=== PATIENT | male | born 1995 | race African-American/Black ===

== ENCOUNTER 2017-03-12 14:15 | Emergency (ER) | payer MEDICAID ==
[~2017-03-12] VITALS: Ht 175.3 cm; Wt 88.5 kg
[~2017-03-12 14:15] MED LIST: AMOX875T PO; SORE15LO PO
[2017-03-12 14:18] VITALS: BP 130/61; PULSE 84; RESP 20; TEMP 99.3; O2SAT 98
--- NOTE | 2017-03-12 14:33 | PD ---
HPI Chief Complaint: Complaint Time Seen by Provider: 14:33 Travel History International Travel<30 days: No Contact w/Intl Traveler<30days: No Traveled to known affect area: No History of Present Illness HPI 21-year-old male presents to the emergency Department with complaint of yellowish drainage from his penis for over a week. Reports dysuria. Denies testicular swelling, testicular pain, penile pain. Denies abdominal pain, nausea, vomiting, fever. Reports unprotected sexual intercourse with 2 partners. Has not taken any medications or tried any treatments to alleviate his symptoms. Symptoms are mild in severity. No known aggravating or relieving factors. Unknown exposure to STD. No other medical complaints. No known allergies. No other modifying factors or associated signs and symptoms. PFSH Past Medical History ADHD: No Asthma: Yes Cancer: No Cardiovascular Problems: No Developmental Delay: No Diabetes: No Diminished Hearing: No Psychiatric: No Immunizations Current: Yes Migraines: No Seizures: No Thyroid Disease: No Ulcer: No Past Surgical History Other Surgery: Yes (GANGLION CYST REMOVAL FROM RIGHT WRIST) Social History Alcohol Use: No Tobacco Use: No Substance Use: No Allergies-Medications (Allergen,Severity, Reaction): Coded Allergies: No Known Allergies (Verified , 06/08/16) Reported Meds & Prescriptions Reported Meds & Active Scripts Active Amoxicillin 875 Mg Tab 875 Mg PO BID 10 Days Sore Throat Lozenge (Benzocaine/Menthol) 15-3.6 Mg Lozg 1 Lozenge PO Q6HR PRN Review of Systems Except as stated in HPI: all other systems reviewed are Neg Physical Exam Narrative GENERAL: Well-nourished, well-developed black male patient, in no acute distress SKIN: Warm and dry. HEAD: Atraumatic. Normocephalic. EYES: Pupils equal and round. ENT: Mucosa pink and moist. NECK: Trachea midline. No lymphadenopathy. CARDIOVASCULAR: Regular rate. RESPIRATORY: No accessory muscle use. GASTROINTESTINAL: Abdomen soft and nondisteneded; with tenderness at the umbilicus on palpation. Hepatic and splenic margins not palpable. Bowel sounds are active 4 quadrants. GENITOURINARY: Exam done in the presence of a nurse. Uncircumcised. Testes descended bilaterally without evidence of rotation. No lesions or erythema. Milky white/yellowish urethral discharge. MUSCULOSKELETAL: No obvious deformities. No clubbing. No cyanosis. No edema. NEUROLOGICAL: Awake and alert. Oriented 3. No obvious cranial nerve deficits. Motor grossly within normal limits. Normal speech. Moves all extremities. 5/5 strength to all extremities. PSYCHIATRIC: Appropriate mood and affect; insight and judgment normal. Data Data Last Documented VS Vital Signs Date Time Temp Pulse Resp B/P (MAP) Pulse Ox O2 Delivery O2 Flow Rate FiO2 03/12/17 14:18 99.3 84 20 130/61 (84) 98 Room Air Orders Orders Gc And Chlamydia Pcr (03/12/17 14:33) Azithromycin Powd Pack (Zithromax Powd P (03/12/17 14:45) Ceftriaxone Inj (Rocephin Inj) (03/12/17 14:45) Lidocaine 1% Inj (50 Ml) (Xylocaine 1% I (03/12/17 14:45) Metronidazole (Flagyl) (03/12/17 14:45) MDM Medical Decision Making Medical Screen Exam Complete: Yes Emergency Medical Condition: Yes Medical Record Reviewed: Yes Differential Diagnosis Urethritis, chlamydia, gonorrhea, trichomoniasis Narrative Course 21-year-old male physical exam consistent with urethritis. Patient empirically treated with azithromycin, Rocephin, Flagyl. Instructed patient to follow up at [facility] for further STD testing. Patient provided [facility] information sheet. Instructed patient to follow up with primary care provider. Patient verbalizes understanding and agreement with treatment plan. Patient is medically cleared and stable for discharge. Discussed reasons to return to the emergency department. Patient agrees with treatment plan. The patients vital signs are stable and the patient is stable for outpatient follow-up and treatment. Patient discharged home, stable and in no acute distress. Diagnosis Primary Impression: Urethritis Referrals: Primary Care Physician Patient Instructions: Chlamydia (ED), General Instructions, Gonorrhea (ED), Sexually Transmitted Diseases (ED), Trichomoniasis (ED) Additional Instructions: Avoid sexual activity until you follow up with your primary care provider Avoid sexual activity for 14 days Avoid sexual activity with exposed partners until they have been treated and again 14 days after treatment Inform all sexual partners within the past 3-6 months that they need to be evaluated and treated Use condoms every time you have sex Follow-up with primary care provider Return to the emergency department immediately with worsening of symptoms Med/Other Pt SpecificInfo: No Meds Exist/No RX given Disposition: DISCHARGE HOME Condition: Stable Brenda Glass Mar 12, 2017 14:33
[2017-03-12] MEDS ORDERED: LIDOCAINE HCL 1% 50 ML VIAL IM ONE (14:45)
[2017-03-12] MEDS ORDERED: cefTRIAXone 250 MG VIAL IM ONE (14:45)
[2017-03-12] MEDS ORDERED: metroNIDAZOLE 500 MG TAB PO ONE (14:45)
[2017-03-12] MEDS ORDERED: AZITHROMYCIN PWD FOR SUSP 1 GM PACKET PO ONE (14:45)
[2017-03-12 19:47] LABS: CHLAMYDIA PCR NOT DETECTED (NOT DETECT); NEISSERIA PCR NOT DETECTED (NOT DETECT)
== END 2017-03-12 15:04 | disposition home or self-care (01) ==
LOC: NEPK 14:15
DX: N34.2 Other urethritis (principal); Z87.09 Personal history of other diseases of the respiratory system
CPT/HCPCS: 87491; 87591; 96372; 99284; J0696

== ENCOUNTER → 2017-03-15 | Day surgery (SDC) | payer MEDICAID ==
[~2017-03-15] MED LIST changes: +BUPIVACAINE/EPINEPHRINE 0.25% 50 ML VIAL ONE; +KETOROLAC TROMETHAMINE 30 MG/ML (IVP) VIAL IV PUSH ONE; +LACTATED RINGER'S 1000 ML INJ 1,000 ML ONE; +MEPERIDINE HCL 25 MG/ML VIAL ONE; +MIDAZOLAM HCL 2 MG/2 ML VIAL ONE; +ONDANSETRON HCL 4 MG/2 ML VIAL IV PUSH ONE; +PROPOFOL 200 MG/20 ML AMP IV ONE; +ceFAZolin INJ 1,000 MG VIAL ONE
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
== END | disposition home or self-care (01) ==
LOC: ESDC 06:43
PROVIDERS: ATTEND Orthopaedic Surgery Sports Medicine
DX: S83.251A Bucket-handle tear of lateral meniscus, current injury, right knee, initial encounter (principal); M65.9 Synovitis and tenosynovitis, unspecified
CPT/HCPCS: 01400; 29881; J0690; J1885; J2175; J2250; J2405; J3010; J7120

== ENCOUNTER 2017-05-07 12:03 | Emergency (ER) | payer MEDICAID ==
[~2017-05-07 12:03] MED LIST changes: -BUPIVACAINE/EPINEPHRINE 0.25% 50 ML VIAL ONE; -KETOROLAC TROMETHAMINE 30 MG/ML (IVP) VIAL IV PUSH ONE; -LACTATED RINGER'S 1000 ML INJ 1,000 ML ONE; -MEPERIDINE HCL 25 MG/ML VIAL ONE; -MIDAZOLAM HCL 2 MG/2 ML VIAL ONE; -ONDANSETRON HCL 4 MG/2 ML VIAL IV PUSH ONE; -PROPOFOL 200 MG/20 ML AMP IV ONE; -ceFAZolin INJ 1,000 MG VIAL ONE
[2017-05-07 12:05] VITALS: BP 147/63; PULSE 91; RESP 16; TEMP 98.8; O2SAT 98
--- NOTE | 2017-05-07 12:34 | PD ---
HPI Chief Complaint: ENT Complaint Time Seen by Provider: 12:28 Travel History International Travel<30 days: No Contact w/Intl Traveler<30days: No Traveled to known affect area: No History of Present Illness HPI 22-year-old male presents to the emergency department with a sore throat for approximately 3 days. States that he has chronic history of sore throats and get strep pharyngitis recently. They say he has been around a lot of sick people with "the common cold" and does not know if anybody else has had strep pharyngitis. Patient denies fever, chills, chest pain, shortness of breath. Also denies excessive drooling, pain with talking, cough, neck pain. She is otherwise healthy. He has not tried anything [id number] for his symptoms PFSH Past Medical History ADHD: No Asthma: Yes Cancer: No Cardiovascular Problems: No Developmental Delay: No Diabetes: No Diminished Hearing: No Psychiatric: No Immunizations Current: Yes Migraines: No Seizures: No Thyroid Disease: No Ulcer: No Past Surgical History Other Surgery: Yes (GANGLION CYST REMOVAL FROM RIGHT WRIST) Social History Alcohol Use: No Tobacco Use: No Substance Use: No Allergies-Medications (Allergen,Severity, Reaction): Coded Allergies: No Known Allergies (Verified , 06/08/16) Reported Meds & Prescriptions Reported Meds & Active Scripts Active Amoxicillin 875 Mg Tab 875 Mg PO BID 10 Days Amoxicillin 875 Mg Tab 875 Mg PO BID 10 Days Sore Throat Lozenge (Benzocaine/Menthol) 15-3.6 Mg Lozg 1 Lozenge PO Q6HR PRN Review of Systems Except as stated in HPI: all other systems reviewed are Neg Physical Exam Narrative GENERAL: Well-nourished, well-developed patient. SKIN: Focused skin assessment warm/dry. HEAD: Normocephalic. THROAT: Mild pharyngeal injection with tonsillar hypertrophy. No tonsillar exudates Airway is patent. EYES: No scleral icterus. No injection or drainage. NECK: Supple, trachea midline. No JVD or lymphadenopathy. CARDIOVASCULAR: Regular rate and rhythm without murmurs, gallops, or rubs. RESPIRATORY: Breath sounds equal bilaterally. No accessory muscle use. MUSCULOSKELETAL: No cyanosis, or edema. BACK: Nontender without obvious deformity. No CVA tenderness. Data Data Last Documented VS Vital Signs Date Time Temp Pulse Resp B/P (MAP) Pulse Ox O2 Delivery O2 Flow Rate FiO2 05/07/17 12:05 98.8 91 16 147/63 (91) 98 Orders Orders Ed Discharge Order (05/07/17 12:35) MDM Medical Decision Making Medical Screen Exam Complete: Yes Emergency Medical Condition: Yes Differential Diagnosis Strep pharyngitis versus viral pharyngitis versus allergic pharyngitis Narrative Course 22-year-old male presents to the emergency department with a sore throat for approximately 3 days. States that he has chronic history of sore throats and get strep pharyngitis recently. They say he has been around a lot of sick people with "the common cold" and does not know if anybody else has had strep pharyngitis. Patient denies fever, chills, chest pain, shortness of breath. Also denies excessive drooling, pain with talking, cough, neck pain. She is otherwise healthy. He has not tried anything [id number] for his symptoms. His last episode of strep pharyngitis was one year ago. Vital signs stable Physical exam demonstrates tonsillar hypertrophy with mild pharyngeal injection I did not appreciate tonsillar exudates as mother and patient described. We'll get than the benefit of the doubt and treat for strep pharyngitis. Advised patient to follow up with his primary care physician within 2 days. Consider ear nose throat specialist for recurrent pharyngitis. Diagnosis Primary Impression: Pharyngitis Qualified Codes: J02.9 - Acute pharyngitis, unspecified Referrals: Primary Care Physician Additional Instructions: Follow-up with her primary care physician within 2 days Use a water gargles for symptom relief Medications as prescribed If her symptoms persist or worsen return to the emergency department Scripts Amoxicillin (Amoxicillin) 875 Mg Tab 875 MG PO BID for Infection for 10 Days, #20 TAB 0 Refills Prov: Scott Connor MD 05/07/17 Disposition: 01 DISCHARGE HOME Condition: Stable Mally Jerome May 07, 2017 12:34
[2017-05-07] MEDS ORDERED: AMOX875T PO (12:35)
== END 2017-05-07 13:04 | disposition home or self-care (01) ==
LOC: NEPK 12:03
DX: J02.9 Acute pharyngitis, unspecified (principal); J45.909 Unspecified asthma, uncomplicated
CPT/HCPCS: 99283

== ENCOUNTER 2017-05-31 03:53 | Emergency (ER) | payer MEDICAID ==
[~2017-05-31] VITALS: Ht 177.8 cm; Wt 79.0 kg
[2017-05-31 03:55] VITALS: BP 133/63; PULSE 55; RESP 16; TEMP 98.5; O2SAT 98
--- NOTE | 2017-05-31 04:12 | PD ---
HPI Chief Complaint: Pain: Acute or Chronic Time Seen by Provider: 04:12 Travel History International Travel<30 days: No Contact w/Intl Traveler<30days: No Traveled to known affect area: No History of Present Illness HPI 22-year-old male came to the emergency room with history of right leg calf pain and swelling for past 1 month. Patient had an arthroscopy done in February. He was warned of DVT by the orthopedist. Patient says he started noticing the swelling and pain one month ago. He had gone to [facility] where ultrasound was done but nobody came to tell him the results with 3 hours so he left. Now the swelling and the pain is worsening and hence he came to the emergency room today. His mother is here as well. No history of shortness of breath or chest pain. Vital signs are stable. No previous history of DVT. [facility] Past Medical History Narrative Medical List of his past medical, surgical, social and family history is reviewed from the nursing note. ADHD: No Asthma: Yes Cancer: No Cardiovascular Problems: No Developmental Delay: No Diabetes: No Diminished Hearing: No Psychiatric: No Immunizations Current: Yes Migraines: No Seizures: No Thyroid Disease: No Ulcer: No Past Surgical History Other Surgery: Yes (GANGLION CYST REMOVAL FROM RIGHT WRIST) Social History Alcohol Use: No Tobacco Use: No Substance Use: No Allergies-Medications (Allergen,Severity, Reaction): Coded Allergies: No Known Allergies (Verified Adverse Reaction, Unknown, 05/31/17) Comments No known drug allergies. Reported Meds & Prescriptions Reported Meds & Active Scripts Active Amoxicillin 875 Mg Tab 875 Mg PO BID 10 Days Amoxicillin 875 Mg Tab 875 Mg PO BID 10 Days Sore Throat Lozenge (Benzocaine/Menthol) 15-3.6 Mg Lozg 1 Lozenge PO Q6HR PRN Narrative Medication List of his home medications reviewed from the nursing note. Review of Systems Except as stated in HPI: all other systems reviewed are Neg Musculoskeletal: Positive: Pain Physical Exam Narrative GENERAL: Awake, alert, no obvious distress SKIN: Focused skin assessment warm/dry. HEAD: Atraumatic. Normocephalic. EYES: Pupils equal and round. No scleral icterus. No injection or drainage. ENT: No nasal bleeding or discharge. Mucous membranes pink and moist. NECK: Trachea midline. No JVD. CARDIOVASCULAR: Regular rate and rhythm. No murmur appreciated. RESPIRATORY: No accessory muscle use. Clear to auscultation. Breath sounds equal bilaterally. GASTROINTESTINAL: Abdomen soft, non-tender, nondistended. Hepatic and splenic margins not palpable. Right leg swelling and tenderness. Distal neurovascular is intact. MUSCULOSKELETAL: No obvious deformities. No clubbing. No cyanosis. No edema. NEUROLOGICAL: Awake and alert. No obvious cranial nerve deficits. Motor grossly within normal limits. Normal speech. PSYCHIATRIC: Appropriate mood and affect; insight and judgment normal. Data Data Last Documented VS Orders Orders Us Leg Venous Doppler (05/31/17 ) Ibuprofen (Motrin) (05/31/17 04:30) Ed Discharge Order (05/31/17 06:26) [facility] Medical Decision Making Medical Screen Exam Complete: Yes Emergency Medical Condition: Yes Medical Record Reviewed: Yes Differential Diagnosis DVT, gastrocnemius rupture Narrative Course 6:07 AM ultrasound of the leg has been ordered. Waiting for the test result. Procedures EKG Prior to Arrival: No Diagnosis Primary Impression: Leg pain Qualified Codes: M79.604 - Pain in right leg Referrals: Primary Care Physician Additional Instructions: Take Motrin/ibuprofen/Advil/Aleve for the pain. Keep the leg elevated. Wear compression stockings. Return to the ER if condition worsens or any other new concerns. Otherwise follow-up with your primary care. Disposition: 01 DISCHARGE HOME Condition: Stable Joesph Borrego MD May 31, 2017 04:12
[2017-05-31] MEDS ORDERED: IBUPROFEN 600 MG TAB PO ONE (04:30)
--- NOTE | 2017-05-31 06:05 | RADRPT ---
EXAM DATE/TIME: 05/31/2017 05:41 [place] COMPARISON: No previous studies available for comparison. INDICATIONS : Right leg pain. MEDICAL HISTORY : Asthma. SURGICAL HISTORY : Ganglion cyst removal from right wrist. ENCOUNTER: Initial ACUITY: 1 month PAIN SCORE: 8/10 LOCATION: Right leg. TECHNIQUE: Venous ultrasound of the leg was performed from the inguinal ligament to the proximal calf. Real-louisa e, color Doppler and spectral tracing, compression and augmentation techniques were used. FINDINGS: There is normal compressibility of the deep venous system from the inguinal region to the proximal ca lf. No echogenic clot is seen in the lumen of the common femoral, femoral, popliteal, and posterior tibial veins. There is a normal response of the venous system to proximal and distal augmentation an d respiration. CONCLUSION: Negative study with no evidence of deep venous thrombosis. Leeroy Del Castillo MD on May 31, 2017 at 6:03 Board Certified Radiologist. This report was verified electronically.
== END 2017-05-31 07:30 | disposition home or self-care (01) ==
LOC: NEPE 03:53
DX: M79.604 Pain in right leg (principal); R22.41 Localized swelling, mass and lump, right lower limb; Z87.09 Personal history of other diseases of the respiratory system
CPT/HCPCS: 93971; 99284

== ENCOUNTER 2017-06-08 11:25 | Emergency (ER) | payer MEDICAID, OTHER ==
[2017-06-08 11:27] VITALS: BP 121/75; PULSE 70; RESP 12; TEMP 98; O2SAT 98
[2017-06-08] MEDS ORDERED: predniSONE 20 MG TAB PO ONE (12:15)
[2017-06-08] MEDS ORDERED: PRED-503 PO (12:15)
[2017-06-08] MEDS ORDERED: DIPH25CA PO (12:15)
[2017-06-08] MEDS ORDERED: diphenhydrAMINE HCL 25 MG CAP PO ONE (12:15)
--- NOTE | 2017-06-08 12:15 | PD ---
HPI Chief Complaint: Skin Problem Time Seen by Provider: 11:38 Travel History International Travel<30 days: No Contact w/Intl Traveler<30days: No Traveled to known affect area: No History of Present Illness HPI The patient is a 22-year-old Liz male who presents emergency department for rash. The patient states the rash started several days prior to arrival, initially on the upper right back. The rash then spread down the back and is affecting the upper extremities bilaterally. He does state there is some pruritus associated with the rash. They did recently changed laundry detergents. He denies change in any other body washes and denies any recent change in medications or the ingestion of new medications. He does state the rash is somewhat pruritic. He denies any intraoral involvement or involvement of the hands or feet. He denies any family members at home have an similar lesions. Symptoms are mild without any alleviating or exacerbating factors. PFSH Past Medical History ADHD: No Asthma: Yes Cancer: No Cardiovascular Problems: No Developmental Delay: No Diabetes: No Diminished Hearing: No Psychiatric: No Immunizations Current: Yes Migraines: No Seizures: No Thyroid Disease: No Ulcer: No Tetanus Vaccination: < 5 Years Influenza Vaccination: No Past Surgical History Other Surgery: Yes (GANGLION CYST REMOVAL FROM RIGHT WRIST) Social History Alcohol Use: No Tobacco Use: No Substance Use: No Allergies-Medications (Allergen,Severity, Reaction): Coded Allergies: No Known Allergies (Verified Adverse Reaction, Unknown, 06/08/17) Reported Meds & Prescriptions Reported Meds & Active Scripts Active No Active Prescriptions or Reported Medications Review of Systems Except as stated in HPI: all other systems reviewed are Neg General / Constitutional: No: Fever HENT: No: Headaches, Sore Throat, Congestion Respiratory: No: Cough Gastrointestinal: No: Nausea, Vomiting, Diarrhea Musculoskeletal: No: Myalgias, Arthralgias Skin: Positive Rash, Positive Itching Physical Exam Narrative GENERAL: Awake, alert, very pleasant 22-year-old male who appears his stated age and is in no acute respiratory distress. SKIN: Focused skin assessment warm/dry. The patient appears to have a herald patch and right upper back overlying the scapular area that is approximately 3 cm in diameter. He has another similar lesion over the mid aspect of the thoracic area and in several small macules and plaques on the back. He also has mild involvement of the upper extension is bilateral that do not extend beyond the distal biceps. No visible involvement of the palms or soles. HEAD: Atraumatic. Normocephalic. EYES: Pupils equal and round. No scleral icterus. No injection or drainage. ENT: No nasal bleeding or discharge. Mucous membranes pink and moist. No visible intraoral lesions. NECK: Trachea midline. No JVD. MUSCULOSKELETAL: No obvious deformities. No clubbing. No cyanosis. No edema. NEUROLOGICAL: Awake and alert. No obvious cranial nerve deficits. Motor grossly within normal limits. Normal speech. PSYCHIATRIC: Appropriate mood and affect; insight and judgment normal. Data Data Last Documented VS Vital Signs Date Time Temp Pulse Resp B/P (MAP) Pulse Ox O2 Delivery O2 Flow Rate FiO2 06/08/17 11:44 16 06/08/17 11:27 98.0 70 121/75 (90) 98 Orders Orders Prednisone (Deltasone) (06/08/17 12:15) Diphenhydramine (Benadryl) (06/08/17 12:15) [facility] Medical Decision Making Medical Screen Exam Complete: Yes Emergency Medical Condition: Yes Medical Record Reviewed: Yes Differential Diagnosis Differential diagnosis includes pityriasis rosea, dermatitis, scarlet fever, viral exanthem, allergic reaction. Narrative Course The patient's physical examination appears to be pityriasis rosea, however, he has recently changed detergents and this may be a secondary dermatitis. I did advise him the most likely this is pityriasis rosea which is most likely cause for rotavirus. He will be placed a shortness of steroids, however, I did advise him if this is pityriasis rosea his symptoms may last up to 6 weeks. He is advised to take Benadryl as needed for itching and follow-up with the career agent if symptoms persist. Diagnosis Primary Impression: Skin rash Patient Instructions: General Instructions Additional Instructions: If the steroids do not resolve your rash you may need to follow-up with dermatology, however, this most likely is pityriasis rosea secondary to a virus and treatment is mostly symptomatic with Benadryl. Med/Other Pt SpecificInfo: Prescription(s) given Scripts Diphenhydramine (Diphenhydramine) 25 Mg Cap 25 MG PO Q6H Y for ALLERGIES, #20 CAP 0 Refills Prov: Go Torres MD 06/08/17 Prednisone (Deltasone) 20 Mg Tab 40 MG PO DAILY for 4 Days, #8 TAB 0 Refills Prov: Go Torres MD 06/08/17 Disposition: 01 DISCHARGE HOME Condition: Stable Go Torres MD Jun 08, 2017 12:15
[2017-06-08 13:20] VITALS: BP 102/77; TEMP 97.8
== END 2017-06-08 13:22 | disposition home or self-care (01) ==
LOC: NEPD 11:25
DX: R21 Rash and other nonspecific skin eruption (principal); J45.909 Unspecified asthma, uncomplicated
CPT/HCPCS: 99284; J7512

== ENCOUNTER 2017-06-27 12:19 | Emergency (ER) | payer MEDICAID, OTHER ==
[~2017-06-27] VITALS: Ht 177.8 cm; Wt 77.3 kg
[~2017-06-27 12:19] MED LIST changes: -AMOX875T PO; +DIPH25CA PO; +PRED-503 PO; -SORE15LO PO
[2017-06-27 12:21] VITALS: BP 131/91; PULSE 81; RESP 18; TEMP 99.2; O2SAT 99
--- NOTE | 2017-06-27 12:42 | PD ---
HPI Chief Complaint: Dizziness Time Seen by Provider: 12:41 Travel History International Travel<30 days: No Contact w/Intl Traveler<30days: No Traveled to known affect area: No History of Present Illness HPI 22-year-old Afro-[place] Citizen male presents the emergency department with vague symptoms of dizziness, chest and abdominal discomfort, and "not feeling well" on awakening this morning. He feels the room is spinning. He recently got over a cold about a week ago. He denies cough, shortness of breath, sore throat , headache, ear pain, nausea or vomiting. He denies urinary symptoms or changes in his bowels. He has no known drug allergies. PFSH Past Medical History ADHD: No Asthma: Yes Cancer: No Cardiovascular Problems: No Developmental Delay: No Diabetes: No Diminished Hearing: No Psychiatric: No Immunizations Current: Yes Migraines: No Seizures: No Thyroid Disease: No Ulcer: No Past Surgical History Other Surgery: Yes (GANGLION CYST REMOVAL FROM RIGHT WRIST) Social History Alcohol Use: No Tobacco Use: No Substance Use: No Allergies-Medications (Allergen,Severity, Reaction): Coded Allergies: No Known Allergies (Verified Adverse Reaction, Unknown, 06/27/17) Reported Meds & Prescriptions Reported Meds & Active Scripts Active Diphenhydramine (Diphenhydramine HCl) 25 Mg Cap 25 Mg PO Q6H PRN Deltasone (Prednisone) 20 Mg Tab 40 Mg PO DAILY 4 Days Review of Systems Except as stated in HPI: all other systems reviewed are Neg General / Constitutional: No: Fever Eyes: No: Diploplia, Blurred Vision, Photophobia, Drainage, Visual changes HENT: Positive: Vertigo, No: Headaches, Lightheadedness, Sore Throat, Rhinitis , Rhinorrhea, Congestion, Nosebleed, Neck Stiffness, Neck Pain, Dental Difficulties, Earache Cardiovascular: No: Chest Pain or Discomfort Respiratory: No: Shortness of Breath Gastrointestinal: No: Abdominal Pain Genitourinary: No: Dysuria Musculoskeletal: Positive: Myalgias, No: Pain Skin: No Rash Neurologic: No: Weakness Psychiatric: No: Depression Endocrine: No: Polydipsia Hematologic/Lymphatic: No: Easy Bruising Physical Exam Narrative GENERAL: Patient appears in no acute distress. SKIN: Warm and dry. Normal color. Normal turgor. No signs of trauma. No rash. HEAD: Atraumatic. Normocephalic. EYES: Pupils equal and round. No scleral icterus. No injection or drainage. No nystagmus appreciated. ENT: No nasal bleeding or discharge. Mucous membranes pink and moist. TMs are clear bilaterally. Pharynx is clear. Airway is patent. NECK: Trachea midline. Supple nontender. CARDIOVASCULAR: Regular rate and rhythm. No murmurs gallops or rubs. RESPIRATORY: No accessory muscle use. Clear to auscultation. Breath sounds equal bilaterally. GASTROINTESTINAL: Abdomen soft, non-tender, nondistended. Hepatic and splenic margins not palpable. MUSCULOSKELETAL: Extremities without clubbing, cyanosis, or edema. No obvious deformities. NEUROLOGICAL: Awake and alert. No obvious cranial nerve deficits. Motor grossly within normal limits. Five out of 5 muscle strength in the arms and legs. Normal speech. PSYCHIATRIC: Appropriate mood and affect; insight and judgment normal. Data Data Last Documented VS Vital Signs Date Time Temp Pulse Resp B/P (MAP) Pulse Ox O2 Delivery O2 Flow Rate FiO2 06/27/17 13:15 93 18 128/57 (80) 76 16 132/60 (84) 81 18 132/64 (86) 06/27/17 12:46 100 Room Air 06/27/17 12:21 99.2 Orders Orders Electrocardiogram (06/27/17 12:47) Complete Blood Count With Diff (06/27/17 12:47) Comprehensive Metabolic Panel (06/27/17 12:47) Urinalysis - C+S If Indicated (06/27/17 12:47) Chest, Single Ap (06/27/17 12:47) Ecg Monitoring (06/27/17 12:47) Iv Access Insert/Monitor (06/27/17 12:47) Oximetry (06/27/17 12:47) Meclizine (Antivert) (06/27/17 13:00) Sodium Chloride 0.9% Flush (Ns Flush) (06/27/17 13:00) Sodium Chlor 0.9% 1000 Ml Inj (Ns 1000 M (06/27/17 12:47) Orthostatic Vital Signs (06/27/17 12:47) Influenzae A/B Antigen (06/27/17 12:47) Labs Laboratory Tests Test 06/27/17 13:12 White Blood Count 4.6 TH/MM3 Red Blood Count 5.15 MIL/MM3 Hemoglobin 14.7 GM/DL Hematocrit 44.2 % Mean Corpuscular Volume 85.8 FL Mean Corpuscular Hemoglobin 28.5 PG Mean Corpuscular Hemoglobin Concent 33.2 % Red Cell Distribution Width 13.1 % Platelet Count 262 TH/MM3 Mean Platelet Volume 8.7 FL Neutrophils (%) (Auto) 51.2 % Lymphocytes (%) (Auto) 34.6 % Monocytes (%) (Auto) 8.9 % Eosinophils (%) (Auto) 3.8 % Basophils (%) (Auto) 1.5 % Neutrophils # (Auto) 2.4 TH/MM3 Lymphocytes # (Auto) 1.6 TH/MM3 Monocytes # (Auto) 0.4 TH/MM3 Eosinophils # (Auto) 0.2 TH/MM3 Basophils # (Auto) 0.1 TH/MM3 CBC Comment DIFF FINAL Differential Comment Blood Urea Nitrogen 13 MG/DL Creatinine 1.04 MG/DL Random Glucose 86 MG/DL Total Protein 8.0 GM/DL Albumin 4.4 GM/DL Calcium Level 9.4 MG/DL Alkaline Phosphatase 109 U/L Aspartate Amino Transf (AST/SGOT) 21 U/L Alanine Aminotransferase (ALT/SGPT) 20 U/L Total Bilirubin 0.7 MG/DL Sodium Level 137 MEQ/L Potassium Level 4.5 MEQ/L Chloride Level 103 MEQ/L Carbon Dioxide Level 29.7 MEQ/L Anion Gap 4 MEQ/L Estimat Glomerular Filtration Rate 110 ML/MIN [facility] Medical Decision Making Medical Screen Exam Complete: Yes Emergency Medical Condition: Yes Differential Diagnosis Viral syndrome. Influenza. Dehydration. Vertigo. Narrative Course Patient appears medically stable at time of exam. Labs ordered including CBC, CMP, and rapid influenza. EKG and chest x-ray is ordered. Orthostatics are normal. Labs are unremarkable. EKG is unremarkable. Chest x-ray is normal. Rapid influenza is negative. Patient was given meclizine 25 mg by mouth. Patient was also given 1000 mL normal saline bolus. Patient states he feels somewhat better and is felt that he has a viral syndrome with vertigo. Patient will be given meclizine 25 mg every 8 hours when necessary #12. Patient is recommended to rest, push fluids, take Tylenol Motrin as needed. Patient to follow with local primary care physician or return to emergency department if symptoms worsen. Diagnosis Primary Impression: Vertigo Referrals: [facility] Patient Instructions: Benign Paroxysmal Positional Vertigo (ED), General Instructions Additional Instructions: Orthostatics are normal. Labs are unremarkable. EKG is unremarkable. Chest x-ray is normal. Rapid influenza is negative. Patient was given meclizine 25 mg by mouth. Patient was also given 1000 mL normal saline bolus. Patient states he feels somewhat better and is felt that he has a viral syndrome with vertigo. Patient will be given meclizine 25 mg every 8 hours when necessary #12. Patient is recommended to rest, push fluids, take Tylenol Motrin as needed. Patient to follow with local primary care physician or return to emergency department if symptoms worsen. Med/Other Pt SpecificInfo: Prescription(s) given Disposition: 01 DISCHARGE HOME Condition: Stable Job Baez Jun 27, 2017 12:42
[2017-06-27] MEDS ORDERED: SODIUM CHLOR 0.9% 1000 ML INJ 1,000 ML IV ONE (12:47)
[2017-06-27] MEDS ORDERED: MECLIZINE HCL 25 MG TAB PO ONE (13:00)
[2017-06-27] MEDS ORDERED: SODIUM CHLORIDE 0.9% FLUSH 10 ML FLUSH IVF PRN (13:00)
[2017-06-27 13:15] VITALS: BP_SYST 128; BP_SYST 132; BP_DIAS 57; BP_DIAS 60; BP_DIAS 64; RESP 16; RESP 18
[2017-06-27 13:34] LABS: AUTOMATED NEUTROPHIL # 2.4 TH/MM3 (1.8-7.7); BASOPHIL # 0.1 TH/MM3 (0-0.2); BASOPHIL % 1.5 % (0.0-2.0); EOSINOPHIL # 0.2 TH/MM3 (0-0.4); EOSINOPHIL % 3.8 % (0.0-4.0); HEMATOCRIT 44.2 % (39.0-51.0); HEMOGLOBIN 14.7 GM/DL (13.0-17.0); LYMPH % 34.6 % (9.0-44.0); LYMPHOCYTE # 1.6 TH/MM3 (1.0-4.8); MEAN CELL VOLUME 85.8 FL (80.0-100.0); MEAN CORPUSCULAR HEMOGLOBIN 28.5 PG (27.0-34.0); MEAN CORPUSCULAR HGB CONC 33.2 % (32.0-36.0); MEAN PLATELET VOLUME 8.7 FL (7.0-11.0); MONO % 8.9 % (0.0-8.0); MONOCYTE # 0.4 TH/MM3 (0-0.9); NEUT % 51.2 % (16.0-70.0); PLATELET COUNT 262 TH/MM3 (150-450); RED BLOOD COUNT 5.15 MIL/MM3 (4.50-5.90); RED CELL DISTRIBUTION WIDTH 13.1 % (11.6-17.2); WHITE BLOOD COUNT 4.6 TH/MM3 (4.0-11.0)
[2017-06-27 13:49] LABS: ALBUMIN 4.4 GM/DL (3.4-5.0); ALT (GPT) 20 U/L (9-52); AST (GOT) 21 U/L (15-39); BICARBONATE 29.7 MEQ/L (21.0-32.0); BLOOD UREA NITROGEN 13 MG/DL (7-18); CALCIUM 9.4 MG/DL (8.5-10.1); CHLORIDE 103 MEQ/L (98-107); CREATININE 1.04 MG/DL (0.60-1.30); GLOMERULAR FILTRATION RATE 110 ML/MIN (>89); GLUCOSE,RANDOM 86 MG/DL (74-106); SODIUM (NA) 137 MEQ/L (136-145)
[2017-06-27 13:50] LABS: ALKALINE PHOSPHATASE 109 U/L (45-117); TOTAL BILIRUBIN ADULT 0.7 MG/DL (0.2-1.0)
--- NOTE | 2017-06-27 13:50 | RADRPT ---
EXAM DATE/TIME: 06/27/2017 13:07 [place] COMPARISON: No previous studies available for comparison. INDICATIONS : Chest pain and shortness of breath. MEDICAL HISTORY : Asthma. SURGICAL HISTORY : ENCOUNTER: Initial ACUITY: 1 day PAIN SCORE: 7/10 LOCATION: Bilateral chest FINDINGS: A single view of the chest demonstrates the lungs to be symmetrically aerated without evidence of mas s, infiltrate or effusion. The cardiomediastinal contours are unremarkable. Osseous structures are intact. CONCLUSION: No acute disease. Ricky Conn MD FACR on June 27, 2017 at 13:48 Board Certified Radiologist. This report was verified electronically.
--- NOTE | 2017-06-27 14:18 | PD ---
Physical Exam Date Seen by Provider: Jun 27, 2017 Narrative This patient presents with abdominal pain and several other associated symptoms. He looks well. His abdomen is soft. Data Data Last Documented VS Vital Signs Date Time Temp Pulse Resp B/P (MAP) Pulse Ox O2 Delivery O2 Flow Rate FiO2 06/27/17 13:15 93 18 128/57 (80) 76 16 132/60 (84) 81 18 132/64 (86) 06/27/17 12:46 100 Room Air 06/27/17 12:21 99.2 Orders Orders Electrocardiogram (06/27/17 12:47) Complete Blood Count With Diff (06/27/17 12:47) Comprehensive Metabolic Panel (06/27/17 12:47) Urinalysis - C+S If Indicated (06/27/17 12:47) Chest, Single Ap (06/27/17 12:47) Ecg Monitoring (06/27/17 12:47) Iv Access Insert/Monitor (06/27/17 12:47) Oximetry (06/27/17 12:47) Meclizine (Antivert) (06/27/17 13:00) Sodium Chloride 0.9% Flush (Ns Flush) (06/27/17 13:00) Sodium Chlor 0.9% 1000 Ml Inj (Ns 1000 M (06/27/17 12:47) Orthostatic Vital Signs (06/27/17 12:47) Influenzae A/B Antigen (06/27/17 12:47) Ed Discharge Order (06/27/17 14:16) Labs Laboratory Tests Test 06/27/17 13:12 White Blood Count 4.6 TH/MM3 Red Blood Count 5.15 MIL/MM3 Hemoglobin 14.7 GM/DL Hematocrit 44.2 % Mean Corpuscular Volume 85.8 FL Mean Corpuscular Hemoglobin 28.5 PG Mean Corpuscular Hemoglobin Concent 33.2 % Red Cell Distribution Width 13.1 % Platelet Count 262 TH/MM3 Mean Platelet Volume 8.7 FL Neutrophils (%) (Auto) 51.2 % Lymphocytes (%) (Auto) 34.6 % Monocytes (%) (Auto) 8.9 % Eosinophils (%) (Auto) 3.8 % Basophils (%) (Auto) 1.5 % Neutrophils # (Auto) 2.4 TH/MM3 Lymphocytes # (Auto) 1.6 TH/MM3 Monocytes # (Auto) 0.4 TH/MM3 Eosinophils # (Auto) 0.2 TH/MM3 Basophils # (Auto) 0.1 TH/MM3 CBC Comment DIFF FINAL Differential Comment Blood Urea Nitrogen 13 MG/DL Creatinine 1.04 MG/DL Random Glucose 86 MG/DL Total Protein 8.0 GM/DL Albumin 4.4 GM/DL Calcium Level 9.4 MG/DL Alkaline Phosphatase 109 U/L Aspartate Amino Transf (AST/SGOT) 21 U/L Alanine Aminotransferase (ALT/SGPT) 20 U/L Total Bilirubin 0.7 MG/DL Sodium Level 137 MEQ/L Potassium Level 4.5 MEQ/L Chloride Level 103 MEQ/L Carbon Dioxide Level 29.7 MEQ/L Anion Gap 4 MEQ/L Estimat Glomerular Filtration Rate 110 ML/MIN MDM Supervised Visit with CHERYL: Yes Narrative Course I, Dr. Ogden, have reviewed the advance practice practitioner's documentation and am in agreement, met with the patient face to face, made the diagnosis, and the medical decision making was done by me. *My assessment and Findings: Patient is awake and alert and is in no distress. Please see Phong Baez PA-C's note for results of laboratory and radiographic evaluation, ED course, final diagnosis and disposition Diagnosis Primary Impression: Vertigo Referrals: [facility] Patient Instructions: General Instructions, Benign Paroxysmal Positional Vertigo (ED) Additional Instruction: Orthostatics are normal. Labs are unremarkable. EKG is unremarkable. Chest x-ray is normal. Rapid influenza is negative. Patient was given meclizine 25 mg by mouth. Patient was also given 1000 mL normal saline bolus. Patient states he feels somewhat better and is felt that he has a viral syndrome with vertigo. Patient will be given meclizine 25 mg every 8 hours when necessary #12. Patient is recommended to rest, push fluids, take Tylenol Motrin as needed. Patient to follow with local primary care physician or return to emergency department if symptoms worsen. Disposition: 01 DISCHARGE HOME Condition: Stable Shae Ogden MD Jun 27, 2017 14:18
[2017-06-27] MEDS ORDERED: MECL-62 PO (14:28)
--- NOTE | 2017-06-29 23:55 | EKG ---
Date Performed: 06/27/2017 Time Performed: 13:24:39 PTAGE: 22 years EKG: Sinus rhythm WITH SINUS ARRHYTHMIA POSSIBLE RIGHT VENTRICULAR CONDUCTION DELAY ST ELEVATION, PROBABLY EARLY REPOL ARIZATION BORDERLINE ECG PREVIOUS TRACING : 06/27/2017 13.23 DOCTOR: Ivon Gonzales Interpretating Date/Time 06/29/2017 23:55:15
== END 2017-06-27 15:09 | disposition home or self-care (01) ==
LOC: NEPD 12:19
DX: B34.9 Viral infection, unspecified (principal); R42 Dizziness and giddiness; J45.909 Unspecified asthma, uncomplicated
CPT/HCPCS: 71045; 80053; 85025; 87804; 93005; 96360; 99285; J7030

== ENCOUNTER 2017-08-09 08:38 | Emergency (ER) | payer MEDICAID ==
[~2017-08-09] VITALS: Ht 177.8 cm; Wt 75.0 kg
[~2017-08-09 08:38] MED LIST changes: +MECL-62 PO
[2017-08-09 08:41] VITALS: BP 138/68; PULSE 59; RESP 14; TEMP 97.9; O2SAT 100
--- NOTE | 2017-08-09 09:38 | PD ---
HPI Chief Complaint: Abdominal Pain Time Seen by Provider: 09:19 Travel History International Travel<30 days: No Contact w/Intl Traveler<30days: No Traveled to known affect area: No History of Present Illness HPI This patient complains of pain in his right side. Pains are intermittent and worsened by movement or twisting his torso. Duration is 3 days. They are to report started he started to football practice and training. No specific injury. He has no hematuria or urinary complaints or fever or nausea or vomiting or diarrhea. He's been eating fine without change of symptoms. Severity is mild to moderate. No alleviating factors PFSH Past Medical History Medical History: Denies Significant Hx ADHD: No Asthma: Yes Cancer: No Cardiovascular Problems: No Developmental Delay: No Diabetes: No Diminished Hearing: No Psychiatric: No Immunizations Current: Yes Migraines: No Seizures: No Thyroid Disease: No Ulcer: No Tetanus Vaccination: < 5 Years Past Surgical History Other Surgery: Yes (GANGLION CYST REMOVAL FROM RIGHT WRIST) Social History Alcohol Use: No Tobacco Use: No Substance Use: No Allergies-Medications (Allergen,Severity, Reaction): Coded Allergies: No Known Allergies (Verified Adverse Reaction, Unknown, 08/09/17) Reported Meds & Prescriptions Reported Meds & Active Scripts Active Meclizine (Meclizine HCl) 25 Mg Tab 25 Mg PO TID PRN Diphenhydramine (Diphenhydramine HCl) 25 Mg Cap 25 Mg PO Q6H PRN Deltasone (Prednisone) 20 Mg Tab 40 Mg PO DAILY 4 Days Review of Systems General / Constitutional: No: Fever Eyes: No: Visual changes HENT: No: Headaches Cardiovascular: No: Chest Pain or Discomfort Respiratory: No: Shortness of Breath Gastrointestinal: No: Abdominal Pain Genitourinary: No: Dysuria Musculoskeletal: Positive: Pain Skin: No Rash Neurologic: No: Weakness Psychiatric: No: Depression Endocrine: No: Polydipsia Hematologic/Lymphatic: No: Easy Bruising Physical Exam Narrative GENERAL: Well-nourished, well-developed patient in no apparent distress. SKIN: Focused skin assessment reveals no rash and nodules. Skin is Warm and dry. HEAD: Atraumatic. Normocephalic. EYES: Pupils equal and round. No scleral icterus. No injection or drainage. ENT: No nasal bleeding or discharge. Mucous membranes pink and moist. NECK: Trachea midline. No JVD. CARDIOVASCULAR: Regular rate and rhythm. No murmur appreciated. RESPIRATORY: No accessory muscle use. Clear to auscultation. Breath sounds equal bilaterally. GASTROINTESTINAL: Abdomen soft, non-tender, nondistended. Hepatic and splenic margins not palpable. MUSCULOSKELETAL: No obvious deformities. No clubbing. No cyanosis. No edema. Has reproducible muscular tenderness in the right side midaxillary line underneath the rib cage NEUROLOGICAL: Awake and alert. No obvious cranial nerve deficits. Motor grossly within normal limits. Normal speech. PSYCHIATRIC: Appropriate mood and affect; insight and judgment normal. Data Data Last Documented VS Vital Signs Date Time Temp Pulse Resp B/P (MAP) Pulse Ox O2 Delivery O2 Flow Rate FiO2 08/09/17 08:41 97.9 59 14 138/68 (91) 100 Orders Orders Urinalysis - C+S If Indicated (08/09/17 09:24) Urine Culture (08/09/17 09:35) Labs Laboratory Tests Test 08/09/17 09:35 Urine Color YELLOW Urine Turbidity HAZY Urine pH 7.5 Urine Specific [place] 1.023 Urine Protein TRACE mg/dL Urine Glucose (UA) NEG mg/dL Urine Ketones NEG mg/dL Urine Occult Blood NEG Urine Nitrite NEG Urine Bilirubin NEG Urine Urobilinogen 2.0 MG/DL Urine Leukocyte Esterase NEG Urine RBC 1 /hpf Urine WBC 3 /hpf Urine Squamous Epithelial Cells 1 /hpf Urine Bacteria MOD /hpf Microscopic Urinalysis Comment CULTURE INDICATED MDM Medical Decision Making Medical Screen Exam Complete: Yes Emergency Medical Condition: Yes Medical Record Reviewed: Yes Differential Diagnosis Muscular strain, kidney stone, appendicitis Narrative Course I have reviewed the patient's electronic medical record. Presentation seems most consistent with a muscular type of pain. He has no abdominal tenderness. Urinalysis shows no hematuria or significant infection Diagnosis Primary Impression: Muscular abdominal pain in right flank Additional Instructions: The patient was advised to follow up with their physician and return if they worsen. Med/Other Pt SpecificInfo: Other Disposition: 01 DISCHARGE HOME Condition: Stable Anjum Del Toro MD Aug 09, 2017 09:38
[2017-08-09 10:34] LABS: BACTERIA, URINE MOD /hpf; BILIRUBIN, URINE NEG (NEG); BLOOD, URINE NEG (NEG); GLUCOSE,URINE NEG (NEG); KETONE, URINE NEG (NEG); NITRITE,URINE NEG (NEG); PH, URINE 7.5 (5.0-8.5); SQUAMOUS EPITHELIAL CELL URINE 1 /hpf (0-5); URINE COLOR YELLOW (YELLW/STRAW); URINE LEUKOCYTE ESTERASE NEG (NEG)
== END 2017-08-09 11:02 | disposition home or self-care (01) ==
LOC: NEPD 08:38
DX: R10.9 Unspecified abdominal pain (principal); R82.99 Other abnormal findings in urine; J45.909 Unspecified asthma, uncomplicated
CPT/HCPCS: 81001; 87086; 99283

== ENCOUNTER 2017-09-02 11:22 | Emergency (ER) | payer MEDICAID ==
[~2017-09-02] VITALS: Ht 177.8 cm; Wt 55.0 kg
[2017-09-02 11:26] VITALS: BP 151/77; PULSE 51; RESP 20; TEMP 98.7; O2SAT 99
[2017-09-02] MEDS ORDERED: HYDR-3133 PO (13:04)
--- NOTE | 2017-09-02 13:05 | PD ---
HPI Chief Complaint: Skin Problem Time Seen by Provider: 12:37 Travel History International Travel<30 days: No Contact w/Intl Traveler<30days: No Traveled to known affect area: No History of Present Illness HPI 22-year-old male describes an itchy rash about the upper body and forearms. Duration has been about a day. He also notes a skin lesion in the region of the pubic hair and wonders if he might have a cellulitis. No fever. Patient reports no sexual activity for past year. PFSH Past Medical History ADHD: No Asthma: Yes Cancer: No Cardiovascular Problems: No Developmental Delay: No Diabetes: No Diminished Hearing: No Psychiatric: No Immunizations Current: Yes Migraines: No Seizures: No Thyroid Disease: No Ulcer: No Past Surgical History Other Surgery: Yes (GANGLION CYST REMOVAL FROM RIGHT WRIST) Social History Alcohol Use: No Tobacco Use: No Substance Use: No Allergies-Medications (Allergen,Severity, Reaction): Coded Allergies: No Known Allergies (Verified Adverse Reaction, Unknown, 09/02/17) Reported Meds & Prescriptions Reported Meds & Active Scripts Active Hydroxyzine HCl 25 Mg Tab 25 Mg PO TID PRN Review of Systems General / Constitutional: No: Fever, Chills Cardiovascular: No: Chest Pain or Discomfort Physical Exam Narrative GENERAL: 22-year-old male well-nourished well-developed Vital Signs Date Time Temp Pulse Resp B/P (MAP) Pulse Ox O2 Delivery O2 Flow Rate FiO2 09/02/17 11:26 98.7 51 20 151/77 (101) 99 SKIN: Warm and dry. Very minute lesions noted about the upper torso potentially consistent with piloerection however much less concerning for infectious process. In the region of the pubic area there is a ingrown hair. HEAD: Normocephalic. EYES: No scleral icterus. No injection or drainage. NECK: Supple, trachea midline. No JVD or lymphadenopathy. CARDIOVASCULAR: Regular rate and rhythm without murmurs, gallops, or rubs. RESPIRATORY: Breath sounds equal bilaterally. No accessory muscle use. GASTROINTESTINAL: Abdomen soft, non-tender, nondistended. MUSCULOSKELETAL: No cyanosis, or edema. BACK: Nontender without obvious deformity. No CVA tenderness. Data Data Last Documented VS Vital Signs Date Time Temp Pulse Resp B/P (MAP) Pulse Ox O2 Delivery O2 Flow Rate FiO2 09/02/17 11:26 98.7 51 20 151/77 (101) 99 Orders Orders Ed Discharge Order (09/02/17 13:02) MDM Medical Decision Making Medical Screen Exam Complete: Yes Emergency Medical Condition: Yes Medical Record Reviewed: Yes Differential Diagnosis Cellulitis, abscess, dermatitis Narrative Course Very mild dermatitic process noted. Return precautions discussed. Diagnosis Primary Impression: Rash and nonspecific skin eruption Med/Other Pt SpecificInfo: Prescription(s) given Scripts Hydroxyzine HCl (Hydroxyzine HCl) 25 Mg Tab 25 MG PO TID Y for RASH, #20 TAB 0 Refills Prov: Oliver Keyes MD 09/02/17 Disposition: 01 DISCHARGE HOME Condition: Stable Oliver Keyes MD Sep 02, 2017 13:05
== END 2017-09-02 13:30 | disposition home or self-care (01) ==
LOC: NEPD 11:22
DX: R21 Rash and other nonspecific skin eruption (principal)
CPT/HCPCS: 99283

== ENCOUNTER 2017-11-14 18:55 | Emergency (ER) | payer MEDICAID ==
[~2017-11-14] VITALS: Ht 180.3 cm; Wt 75.0 kg
[~2017-11-14 18:55] MED LIST changes: -DIPH25CA PO; +HYDR-3133 PO; -MECL-62 PO; -PRED-503 PO
[2017-11-14 19:13] VITALS: BP 128/60; PULSE 57; RESP 18; TEMP 99; O2SAT 100
== END 2017-11-14 22:00 | disposition left against medical advice (07) ==
LOC: NED 18:55
DX: Z03.89 Encounter for observation for other suspected diseases and conditions ruled out (principal)
CPT/HCPCS: 99281

== ENCOUNTER 2017-12-13 13:52 | Emergency (ER) | payer MEDICAID ==
[~2017-12-13] VITALS: Ht 177.8 cm; Wt 77.0 kg
[2017-12-13 13:56] VITALS: BP 127/56; PULSE 84; RESP 16; TEMP 99.1; O2SAT 99
[2017-12-13 14:54] LABS: AUTOMATED NEUTROPHIL # 2.7 TH/MM3 (1.8-7.7); BASOPHIL # 0.1 TH/MM3 (0-0.2); BASOPHIL % 1.2 % (0.0-2.0); EOSINOPHIL # 0.2 TH/MM3 (0-0.4); EOSINOPHIL % 4.2 % (0.0-4.0); HEMATOCRIT 39.5 % (39.0-51.0); HEMOGLOBIN 12.9 GM/DL (13.0-17.0); LYMPH % 34.2 % (9.0-44.0); LYMPHOCYTE # 1.8 TH/MM3 (1.0-4.8); MEAN CELL VOLUME 86.9 FL (80.0-100.0); MEAN CORPUSCULAR HEMOGLOBIN 28.4 PG (27.0-34.0); MEAN CORPUSCULAR HGB CONC 32.7 % (32.0-36.0); MONOCYTE # 0.4 TH/MM3 (0-0.9); NEUT % 52.4 % (16.0-70.0); PLATELET COUNT 219 TH/MM3 (150-450); RED BLOOD COUNT 4.55 MIL/MM3 (4.50-5.90); RED CELL DISTRIBUTION WIDTH 12.7 % (11.6-17.2); WHITE BLOOD COUNT 5.2 TH/MM3 (4.0-11.0)
[2017-12-13 15:19] LABS: BILIRUBIN, URINE NEG (NEG); BLOOD, URINE NEG (NEG); GLUCOSE,URINE NEG (NEG); HYALINE CAST, URINE 1 /lpf (RARE); KETONE, URINE NEG (NEG); MUCUS URINE FEW /lpf (OCC); NITRITE,URINE NEG (NEG); SQUAMOUS EPITHELIAL CELL URINE 1 /hpf (0-5); URINE COLOR YELLOW (YELLW/STRAW); URINE LEUKOCYTE ESTERASE NEG (NEG)
[2017-12-13 15:24] LABS: ALBUMIN 3.9 GM/DL (3.4-5.0); AST (GOT) 13 U/L (15-39); BICARBONATE 27.1 MEQ/L (21.0-32.0); BLOOD UREA NITROGEN 12 MG/DL (7-18); CALCIUM 8.2 MG/DL (8.5-10.1); CHLORIDE 106 MEQ/L (98-107); CREATININE 0.94 MG/DL (0.60-1.30); GLOMERULAR FILTRATION RATE 124 ML/MIN (>89); GLUCOSE,RANDOM 83 MG/DL (74-106); SODIUM (NA) 141 MEQ/L (136-145)
[2017-12-13 15:28] LABS: ALKALINE PHOSPHATASE 94 U/L (45-117); ALT (GPT) 17 U/L (9-52); TOTAL BILIRUBIN ADULT 0.6 MG/DL (0.2-1.0); TOTAL PROTEIN 7.1 GM/DL (6.4-8.2)
--- NOTE | 2017-12-13 16:30 | PD ---
HPI Chief Complaint: Flank/Kidney Pain Time Seen by Provider: 16:23 Travel History International Travel<30 days: No Contact w/Intl Traveler<30days: No Traveled to known affect area: No History of Present Illness HPI Wesley is a 22 year old male presents to the ER for evaluation of right flank pain. No similar previous pain. No dysuria, no n/v/d/c. Patient states pain is 8/10 in intensity, right flank, no radiation, associated s/s as above. PFSH Past Medical History ADHD: No Asthma: Yes Cancer: No Cardiovascular Problems: No Developmental Delay: No Diabetes: No Diminished Hearing: No Psychiatric: No Immunizations Current: Yes Migraines: No Seizures: No Thyroid Disease: No Ulcer: No Past Surgical History Other Surgery: Yes (GANGLION CYST REMOVAL FROM RIGHT WRIST) Social History Alcohol Use: No Tobacco Use: No Substance Use: No Allergies-Medications (Allergen,Severity, Reaction): Coded Allergies: No Known Allergies (Verified Adverse Reaction, Unknown, 12/13/17) Reported Meds & Prescriptions Reported Meds & Active Scripts Active Review of Systems Except as stated in HPI: all other systems reviewed are Neg Physical Exam Narrative GENERAL: WD/WN in nad. SKIN: Warm and dry. HEAD: Atraumatic. Normocephalic. EYES: Pupils equal and round. No scleral icterus. No injection or drainage. ENT: No nasal bleeding or discharge. Mucous membranes pink and moist. NECK: Trachea midline. No JVD. CARDIOVASCULAR: Regular rate and rhythm. RESPIRATORY: No accessory muscle use. Clear to auscultation. Breath sounds equal bilaterally. GASTROINTESTINAL: Abdomen soft, non-tender, nondistended. Hepatic and splenic margins not palpable. No cva tenderness. MUSCULOSKELETAL: Extremities without clubbing, cyanosis, or edema. No obvious deformities. NEUROLOGICAL: Awake and alert. No obvious cranial nerve deficits. Motor grossly within normal limits. Five out of 5 muscle strength in the arms and legs. Normal speech. PSYCHIATRIC: Appropriate mood and affect; insight and judgment normal. Data Data Last Documented VS Vital Signs Date Time Temp Pulse Resp B/P (MAP) Pulse Ox O2 Delivery O2 Flow Rate FiO2 12/13/17 13:56 99.1 84 16 127/56 (79) 99 Orders Orders Urinalysis - C+S If Indicated (12/13/17 13:59) Complete Blood Count With Diff (12/13/17 13:59) Comprehensive Metabolic Panel (12/13/17 13:59) Lipase (12/13/17 13:59) Ibuprofen (Motrin) (12/13/17 16:45) Ed Discharge Order (12/13/17 16:31) Labs Laboratory Tests Test 12/13/17 14:05 12/13/17 14:20 Urine Color YELLOW Urine Turbidity CLEAR Urine pH 6.0 Urine Specific [place] 1.026 Urine Protein NEG mg/dL Urine Glucose (UA) NEG mg/dL Urine Ketones NEG mg/dL Urine Occult Blood NEG Urine Nitrite NEG Urine Bilirubin NEG Urine Urobilinogen 2.0 mg/dL Urine Leukocyte Esterase NEG Urine RBC LESS THAN 1 /hpf Urine WBC 1 /hpf Urine Squamous Epithelial Cells 1 /hpf Urine Hyaline Casts 1 /lpf Urine Mucus FEW /lpf Microscopic Urinalysis Comment CULT NOT INDICATED White Blood Count 5.2 TH/MM3 Red Blood Count 4.55 MIL/MM3 Hemoglobin 12.9 GM/DL Hematocrit 39.5 % Mean Corpuscular Volume 86.9 FL Mean Corpuscular Hemoglobin 28.4 PG Mean Corpuscular Hemoglobin Concent 32.7 % Red Cell Distribution Width 12.7 % Platelet Count 219 TH/MM3 Mean Platelet Volume 9.0 FL Neutrophils (%) (Auto) 52.4 % Lymphocytes (%) (Auto) 34.2 % Monocytes (%) (Auto) 8.0 % Eosinophils (%) (Auto) 4.2 % Basophils (%) (Auto) 1.2 % Neutrophils # (Auto) 2.7 TH/MM3 Lymphocytes # (Auto) 1.8 TH/MM3 Monocytes # (Auto) 0.4 TH/MM3 Eosinophils # (Auto) 0.2 TH/MM3 Basophils # (Auto) 0.1 TH/MM3 CBC Comment DIFF FINAL Differential Comment Blood Urea Nitrogen 12 MG/DL Creatinine 0.94 MG/DL Random Glucose 83 MG/DL Total Protein 7.1 GM/DL Albumin 3.9 GM/DL Calcium Level 8.2 MG/DL Alkaline Phosphatase 94 U/L Aspartate Amino Transf (AST/SGOT) 13 U/L Alanine Aminotransferase (ALT/SGPT) 17 U/L Total Bilirubin 0.6 MG/DL Sodium Level 141 MEQ/L Potassium Level 3.8 MEQ/L Chloride Level 106 MEQ/L Carbon Dioxide Level 27.1 MEQ/L Anion Gap 8 MEQ/L Estimat Glomerular Filtration Rate 124 ML/MIN Lipase 90 U/L MDM Medical Decision Making Medical Screen Exam Complete: Yes Emergency Medical Condition: Yes Differential Diagnosis Abd pain, abdominal wall pain, kidney stone unlikely, appendicitis highly unlikely, liver disease highly unlikely. Narrative Course Patient roomed in the ED, CBC, CMP UA are reassuring. This certainly could represent muscular strain. He does a fair amount of lifting. Appears well and comfortable. No indication for imaging at this time. Discussed return to ED criteria and follow up with PCP. Diagnosis Primary Impression: Right flank pain Patient Instructions: General Instructions, Musculoskeletal Pain (ED) Additional Instructions: No definitive cause of your pain established. Try ibuprofen 200mg every 8 hours as needed for pain, drink plenty of fluids, heating pack. Follow up with your regular physician or the [facility]. You are welcome to return to the ER any time you think you are having a medical emergency. Disposition: 01 DISCHARGE HOME Condition: Stable Hayes Barakat MD Dec 13, 2017 16:30
[2017-12-13] MEDS ORDERED: IBUPROFEN 600 MG TAB PO ONE (16:45)
== END 2017-12-13 17:15 | disposition home or self-care (01) ==
LOC: NEPD 13:52
DX: R10.9 Unspecified abdominal pain (principal); J45.909 Unspecified asthma, uncomplicated
CPT/HCPCS: 80053; 81001; 83690; 85025; 99283